=== PATIENT | female | born 1955 | race Caucasian/White ===

== ENCOUNTER 2020-09-20 17:47 | Emergency (ER) | payer OTHER ==
[~2020-09-20 17:47] MED LIST: BENTYL10 MG PO; CYMBALTA20 MG PO; ELAVIL25 MG PO; ESTRACE1 MG PO; FLONASE ALLER15.8 ML; LOPID600 MG PO; MS CONTIN30 M1 PO; PERCOCET 10/321 EACH PO; VOLTAREN **OUT75 MG PO; spiriva INH
[2020-09-20 18:44] LABS: BASOPHIL 0.9 % (0-2); EOSINOPHIL 4.3 % (0-7); HCT 42.7 % (37.0-47.0); HGB 14.6 g/dl (12.5-16.0); LYMPHOCYTE 13.3 % (15-48); MCH 28.4 pg (25.0-31.0); MCHC 34.2 g/dL (32.0-36.0); MCV 83.1 fL (78.0-100.0); MONOCYTE 6.2 % (0-12); MPV 9.8 fL (6.0-9.5); NEUTROPHIL 74.9 % (41-80); NRBC 0; PLT 276 K/uL (150-400); RBC 5.14 M/uL (4.20-5.40); RDW 15.9 % (11.5-14.0); WBC 7.9 K/uL (4.0-10.5)
[2020-09-20 19:01] LABS: ALBUMIN 3.2 g/dL (3.4-5.0); BILIRUBIN - TOTAL 0.3 mg/dL (0.2-1.0); BUN/CREAT RATIO (CALC) 12.3 RATIO; CREATININE 0.73 mg/dL (0.51-0.95); GLOBULIN (CALCULATION) 3.4 g/dL; POTASSIUM 3.5 mmol/L (3.5-5.1); TOTAL PROTEIN 6.6 g/dL (6.4-8.2)
[2020-09-20] MEDS ORDERED: METFORMIN HCL500 MG PO (20:47)
== END 2020-09-20 21:49 | disposition home or self-care (01) ==
LOC: FER 17:47
PROVIDERS: Emergency Medicine
DX: E11.65 Type 2 diabetes mellitus with hyperglycemia (principal); I10 Essential (primary) hypertension; I25.10 Atherosclerotic heart disease of native coronary artery without angina pectoris; Z88.0 Allergy status to penicillin; Z88.1 Allergy status to other antibiotic agents; Z88.6 Allergy status to analgesic agent; Z88.8 Allergy status to other drugs, medicaments and biological substances
CPT/HCPCS: 36415; 80053; 83036; 85025; 99283; J7040

== ENCOUNTER 2021-04-25 06:50 | Emergency (ER) | payer OTHER ==
[~2021-04-25 06:50] MED LIST changes: +METFORMIN HCL500 MG PO
== END 2021-04-25 09:43 | disposition home or self-care (01) ==
LOC: FER 06:50
DX: R04.0 Epistaxis (principal); E11.9 Type 2 diabetes mellitus without complications; I10 Essential (primary) hypertension; Z88.0 Allergy status to penicillin; Z79.84 Long term (current) use of oral hypoglycemic drugs; Z88.6 Allergy status to analgesic agent; Z88.5 Allergy status to narcotic agent
CPT/HCPCS: 99283; C9046

== ENCOUNTER 2021-04-25 16:38 | Emergency (ER) | payer OTHER ==
[2021-04-25 17:45] LABS: BASOPHIL 0.7 % (0-2); EOSINOPHIL 2.2 % (0-7); HCT 53.6 % (37.0-47.0); HGB 17.2 g/dl (12.5-16.0); MCH 29.3 pg (25.0-31.0); MCHC 32.1 g/dL (32.0-36.0); MCV 91.2 fL (78.0-100.0); MONOCYTE 6.9 % (0-12); NEUTROPHIL 64.8 % (41-80); NRBC 0; PLT 321 K/uL (150-400); RBC 5.88 M/uL (4.20-5.40); RDW 13.9 % (11.5-14.0); WBC 10.9 K/uL (4.0-10.5)
[2021-04-25 17:55] LABS: INR 0.98 (0.9-1.2); PROTHROMBIN TIME 12.4 SECONDS (11.8-13.4); PTT 31.5 SECONDS (24.4-34.7)
[2021-04-25 18:02] LABS: ALBUMIN 3.5 g/dL (3.4-5.0); BILIRUBIN - TOTAL 0.2 mg/dL (0.2-1.0); BUN/CREAT RATIO (CALC) 25.4 RATIO; CREATININE 0.67 mg/dL (0.51-0.95); GLOBULIN (CALCULATION) 3.6 g/dL; POTASSIUM 5.1 mmol/L (3.5-5.1); TOTAL PROTEIN 7.1 g/dL (6.4-8.2)
== END 2021-04-25 21:02 | disposition other institution (70) ==
LOC: FER 16:38
PROVIDERS: Emergency Medicine
DX: R04.0 Epistaxis (principal); F17.210 Nicotine dependence, cigarettes, uncomplicated; Z88.6 Allergy status to analgesic agent; Z88.5 Allergy status to narcotic agent; Z88.0 Allergy status to penicillin
CPT/HCPCS: 36415; 80053; 85025; 85610; 85730; J2060; J3490